=== PATIENT | male | born 1975 | race Two or more races ===

== ENCOUNTER 2017-04-10 13:23 | Day surgery (SDC) | payer OTHER ==
[~2017-04-10] VITALS: Ht 177.8 cm; Wt 80.7 kg
[2017-04-10 14:02] VITALS: Ht 177.8 cm; Wt 80.7 kg
[2017-04-10] MEDS ORDERED: BP MED (14:08)
[2017-04-10] MEDS ORDERED: HIV MED (14:08)
[2017-04-10] MEDS ORDERED: MIDAZOLAM 1 MG/ML 2 ML INJ ONE ×2 (14:58)
[2017-04-10] MEDS ORDERED: FENTAnyl 50 MCG/ML VIAL ONE (14:58)
--- NOTE | 2017-04-10 14:58 | OPPN ---
Date/Time of Note Date/Time of Note DATE: 04/10/17 TIME: 14:57 Operative Report Preoperative Diagnosis Diarrhea Postoperative Diagnosis Normal colonoscopy Operation/Procedure Performed Colonoscopy Surgeon see signature line design assistant None Anesthesia: moderate sedation (Versed 4 internal 75 mcg total time for moderate sedation 15 minute) Estimated blood loss: none Transfusion Required none Specimen None Grafts/Implants none Complications none LUCITA MAHONEY MD Apr 10, 2017 2:58 pm
--- NOTE | 2017-04-10 14:58 | OPPN ---
Date/Time of Note Date/Time of Note DATE: 04/10/17 TIME: 14:57 Operative Report Preoperative Diagnosis Diarrhea Postoperative Diagnosis Normal colonoscopy Operation/Procedure Performed Colonoscopy Surgeon see signature line delivery assistant None Anesthesia: moderate sedation (Versed 4 internal 75 mcg total time for moderate sedation 15 minute) Estimated blood loss: none Transfusion Required none Specimen None Grafts/Implants none Complications none LUCITA MAHONEY MD Apr 10, 2017 2:58 pm
--- NOTE | 2017-04-10 14:58 | OPPN ---
Date/Time of Note Date/Time of Note DATE: 04/10/17 TIME: 14:57 Operative Report Preoperative Diagnosis Diarrhea Postoperative Diagnosis Normal colonoscopy Operation/Procedure Performed Colonoscopy Surgeon see signature line visitor service assistant None Anesthesia: moderate sedation (Versed 4 internal 75 mcg total time for moderate sedation 15 minute) Estimated blood loss: none Transfusion Required none Specimen None Grafts/Implants none Complications none LUCITA MAHONEY MD Apr 10, 2017 2:58 pm
--- NOTE | 2017-04-11 06:09 | GILP ---
DATE OF PROCEDURE: PREOPERATIVE DIAGNOSIS: Diarrhea. PROCEDURE: Colonoscopy up to cecum. POSTOPERATIVE DIAGNOSIS: Normal colonoscopy. SEDATION: Versed 4 mg, fentanyl 75 mcg given. After obtaining informed consent, the patient was monitored on oximetry, EKG, blood pressure. DESCRIPTION OF PROCEDURE: Sedated with 4 mg IV Versed and 75 mcg of fentanyl. Advanced Olympus vid eo colonoscope all the way to cecum. Appendiceal area and ileocecal valve were identified to the il eocecal valve. I could see the part of the terminal ileum that looked normal, and cecum, ascending colon, transverse colon, descending colon, sigmoid colon including the rectum with retroflexion norm al. No evidence of colitis. Recommend continue to monitor him and high fiber diet, advised him to take Imodium. If the diarrhea continues, do a small bowel series and look for any other causes. Dictated By: LUCITA FERNANDEZ/RINA Conf#: [id number] DID#: [id number] CC: Slade Tran;*EndCC*
== END 2017-04-10 16:00 | disposition home or self-care (01) ==
LOC: GIL 13:23
PROVIDERS: ATTEND Internal Medicine
DX: R19.7 Diarrhea, unspecified (principal)
CPT/HCPCS: 45378; J2250; J3010; Z7610